=== PATIENT | female | born 1930 | race Caucasian/White ===

== ENCOUNTER 2016-09-06 11:22 | Emergency (ER) | payer MEDICARE, OTHER ==
[2016-09-06 11:20] LABS: BASOPHILS 0.5 %; BASOPHILS ABSOLUTE 0.03 10/3/uL (0.0-0.16); EOSINOPHILS 3.5 %; EOSINOPHILS ABSOLUTE 0.21 10/3/uL (0.0-0.53); IMMATURE GRANULOCYTES 0.2 %; IMMATURE GRANULOCYTES ABSOLUTE 0.01 10/3/uL (0.0-0.11); LYMPHOCYTES 29.4 %; LYMPHOCYTES ABSOLUTE 1.77 10/3/uL (0.67-4.30); MEAN CORPUS HGB CONC 33.3 g/dL (32.0-36.0); MEAN PLATELET VOLUME 9.6 fL (9.2-13.0); MONOCYTES 10.6 %; MONOCYTES ABSOLUTE 0.64 10/3/uL (0.21-1.20); NEUTROPHILS 55.8 %; NEUTROPHILS ABSOLUTE 3.37 10/3/uL (2.02-8.40); PLATELET COUNT 231 10/3/uL (150-400); RBC DISTRIBUTION WIDTH 13.4 % (12.0-16.0); RED CELL COUNT 3.36 10/6/uL (4.0-5.6)
[2016-09-06 11:22] LABS: HEMATOCRIT 34.8 % (36.0-48.0); HEMOGLOBIN 11.6 g/dL (12.0-16.0); MEAN CORPUSCULAR HEMOGLOB 34.5 pg (26.0-34.0); MEAN CORPUSCULAR VOLUME 103.6 fL (80-100)
[~2016-09-06 11:22] MED LIST: 8 HOUR650 MG PO; ALEND; ATIVAN2 MG PO; ATV1 PO; BEN25 PO; CALCIUM PO; D 5000 PO; ENDOCET1 TA3 PO; FOSAMAX70 MG PO; L20 PO; LEVAQUIN750 MG PO; LEVOTHYROXIN75 MCG PO; LINZESS 145 M145 MCG PO; LOP25 PO; MAG PO; MELATONIN5 M1 PO; NEUR400 PO; NEUR600 PO; NEUR800 PO; P10 PO; P5 PO; PERI-COLACE1 TAB PO; PRILO PO; PRIN10 PO; ROXICODONE15 MG PO; ROXICODONE30 MG PO; SYSTANE OPH; TOPXL25 PO; VIT D PO; VITAMIN D3 PO; [UNRECOGNIZED DRUG - OTHER] TOP
[2016-09-06 11:23] LABS: MANUAL DIFF NO %
[2016-09-06 11:35] LABS: LACTATE 0.8 MMOL/L (0.3-2.4)
[2016-09-06 11:36] LABS: BUN (BLOOD UREA NITROGEN) 11 MG/DL (6-23); CHLORIDE, SERUM 98 MMOL/L (96-112); CO2 (CARBON DIOXIDE) 27 MMOL/L (24-34); CREATININE 0.64 MG/DL (0.55-1.02); GFR AFRICAN AMERICAN 95 ML/MIN (>=60); GFR NON AFRICAN AMERICAN 82 ML/MIN (>=60); POTASSIUM, SERUM 3.8 MMOL/L (3.5-5.3); SGOT(AST) 21 U/L (5-40); SGPT(ALT) 23 U/L (5-65); SODIUM, SERUM 134 MMOL/L (135-148); TOTAL BILIRUBIN 0.5 MG/DL (0-1.2); TOTAL PROTEIN 6.5 G/DL (6.0-8.5); TROPONIN I 0.03 NG/ML (<0.05)
[2016-09-06 11:41] LABS: ALBUMIN 3.3 G/DL (3.5-5.0); ALKALINE PHOSPHATASE 99 U/L (45-117); CALCIUM, SERUM 9.4 MG/DL (8.5-10.4); GLOBULIN 3.2 G/DL (2.5-4.1); GLUCOSE, SERUM 89 MG/DL (60-99)
[2016-09-06 14:38] LABS: ASCORBIC ACID (UR NOT ORDER) NEG (NEG); BILIRUBIN, URINE NEGATIVE (NEG); ER URINALYSIS TAT 0 Hrs 09 Mins; KETONE, URINE NEGATIVE (NEG); LEUKOCYTE ESTERASE(NOT OR NEG (NEG); NITRITE (URINE) NEG (NEG); WBC (NOT ORDERED) (RFLEX) < 1 (0-5)
[2016-09-14] MEDS ORDERED: P10 PO (19:58)
[2016-09-14] MEDS ORDERED: LEVOTHYROXIN75 MCG PO (19:58)
[2016-09-14] MEDS ORDERED: TRIAMCINOLONE C80 GM TOP (19:58)
[2016-09-14] MEDS ORDERED: ZANTAC 150 PO (19:58)
[2016-09-14] MEDS ORDERED: PRILO PO (19:59)
[2016-09-14] MEDS ORDERED: TOPXL25 PO (19:59)
[2016-09-14] MEDS ORDERED: OXYCOD PO (19:59)
[2016-09-14] MEDS ORDERED: NEUR400 PO (20:00)
[2016-09-14] MEDS ORDERED: ATV.5 PO (20:00)
[2016-09-14] MEDS ORDERED: MIRALAX POWDER1 PKT PO (20:01)
[2016-09-14] MEDS ORDERED: VOLT75 PO (20:01)
[2016-09-14] MEDS ORDERED: MELATONIN5 M1 PO (20:01)
[2016-09-14] MEDS ORDERED: L40 PO (20:01)
[2016-09-14] MEDS ORDERED: BEN25 PO (20:01)
[2016-09-14] MEDS ORDERED: D 5000 PO (20:03)
== END 2016-09-06 16:43 | disposition home or self-care (01) ==
LOC: ER 11:22
PROVIDERS: Nurse Practitioner
DX: R10.10 Upper abdominal pain, unspecified (principal); I10 Essential (primary) hypertension; Z86.73 Personal history of transient ischemic attack (TIA), and cerebral infarction without residual deficits; Z88.5 Allergy status to narcotic agent; Z88.8 Allergy status to other drugs, medicaments and biological substances; Z79.52 Long term (current) use of systemic steroids; Z79.899 Other long term (current) drug therapy
CPT/HCPCS: 74176; 80053; 81001; 83605; 83690; 84484; 85025; 93005; 96374; 96376; 99284; A9270-GY; J1170; J2405